=== PATIENT | male | born 1970 | race Caucasian/White ===

== ENCOUNTER 2018-09-09 14:28 | Emergency (ER) | payer OTHER ==
--- NOTE | 2018-09-09 16:45 | XRAY ---
Indication: Left-sided pain, swelling, and erythema. Recent diagnosis UTI. Two-dimensional testicular sonogram performed. Comparison: None No focal scrotal wall thickening or sonographic features for scrotal cellulitis/fasciitis. Both testicles homogeneous in echogenicity with normal color perfusion. Right testicle measures 4.2 x 3.0 x 2.7 cm and the left measures 3.8 x 3.1 x 2.4 cm. Right epididymis is sonographically unremarkable with tiny 4 mm cyst. Left epididymis appears prominent measuring 1.0 x 2.0 x 1.4 cm with hyperemic color Doppler flow favoring epididymitis. Small bilateral hydroceles. No suspicious extratesticular mass. Impression: 1. Left epididymitis with reactive hydrocele. 2. Tiny right epididymal cyst. 3. Remaining testicle sonogram is negative.
[2018-09-09 17:11] VITALS: BP 120/90; PULSE 64
[2018-09-09 17:15] VITALS: O2SAT 98
--- NOTE | 2018-09-09 17:16 | ERPHSYRPT ---
- History of Present Illness Source: patient Exam Limitations: no limitations Patient Subjective Stated Complaint: Left testicle swelling and pain Triage Nursing Assessment: Patient ambulated back to ED and transferred self to bed. Patient A+O X 3. Patient's skin pink, warm and dry. Patient was dx with UTI a few days ago and started on Cipro 500mg. Patient stated yesterday afternoon his left testicle started swelling and is painful when walking 7/10. Patient denies problems with voiding, but states he is voiding blood. Physician History: Pt is a 48 y/o male that was seen by Acute care yesterday, was diagnosed with UTI and was placed on Cipro. The pt took three doses of Cipro, and the testicle on the L got worse. He states, that the testicle is very swollen, very painful, and hard. Pt has rough time moving in position and is very uncomfortable. Timing/Duration: yesterday Activites at Onset: none Quality: pressure, sharpness, stabbing, throbbing Onset Location: left testicle Pain Radiation: none Severity of Pain-Max: severe Severity of Pain-Current: severe Modifying Factors: Improves With: analgesics, rest, position Associated Symptoms: denies symptoms Prior abdominal problems: none Allergies/Adverse Reactions: No Known Drug Allergies Allergy (Unverified 09/09/18 15:12) Home Medications: No Reportable Medications [No Reported Medications] 09/09/18 [History] Hx Influenza Vaccination/Date Given: No Hx Pneumococcal Vaccination/Date Given: No Immunizations Up to Date: Yes - Past Medical History Pertinent Past Medical History: No Neurological History: No Pertinent History ENT History: No Pertinent History Cardiac History: No Pertinent History Respiratory History: No Pertinent History Endocrine Medical History: No Pertinent History Musculoskeletal History: No Pertinent History GI Medical History: No Pertinent History History: No Pertinent History Psycho-Social History: No Pertinent History Male Reproductive Disorders: No Pertinent History - Past Surgical History Past Surgical History: No Neuro Surgical History: No Pertinent History Cardiac: No Pertinent History Respiratory: No Pertinent History Gastrointestinal: No Pertinent History Genitourinary: No Pertinent History Musculoskeletal: No Pertinent History Male Surgical History: No Pertinent History - Social History Smoking Status: Never smoker Exposure to second hand smoke: No Drug Use: none Patient Lives Alone: No - Review of Systems Constitutional: No Fever, No Chills Eyes: No Symptoms Ears, Nose, & Throat: No Symptoms Respiratory: No Cough, No Dyspnea Cardiac: No Chest Pain, No Edema, No Syncope Abdominal/Gastrointestinal: No Abdominal Pain, No Nausea, No Vomiting, No Diarrhea Genitourinary Symptoms: Dysuria, Hematuria, Testicle Pain (on the L) Musculoskeletal: No Back Pain, No Neck Pain Neurological: No Dizziness, No Focal Weakness, No Sensory Changes - Nursing Vital Signs Nursing Vital Signs: Initial Vital Signs Temperature 99.1 F 09/09/18 15:14 Pulse Rate 79 09/09/18 15:14 Respiratory Rate 18 09/09/18 15:14 Blood Pressure 114/82 09/09/18 15:14 O2 Sat by Pulse Oximetry 98 09/09/18 15:14 Pain Scale Pain Intensity 7 - Physical Exam General Appearance: moderate distress Eye Exam: PERRL/EOMI Ears, Nose, Throat Exam: pharynx normal, moist mucous membranes Neck Exam: normal inspection, supple Respiratory Exam: normal breath sounds, lungs clear Cardiovascular Exam: regular rate/rhythm, No edema Gastrointestinal/Abdomen Exam: soft, No tenderness Male Genital Exam: no hernia, epididymal tenderness, erythema (of the L testicle ), hydrocele, testicular tenderness (L), scrotal swellling Back Exam: normal inspection, No CVA tenderness Extremity Exam: normal inspection, normal range of motion, No pedal edema Neurologic Exam: alert, oriented x 3, cooperative, sensation nml, No motor deficits Skin Exam: normal color, warm, dry, No rash SpO2: 98 - Radiology Ultrasound Exam Scrotal Ultrasound: tele radiology report (L epididymitis with reactive hydrocyle) Ordered Tests: Active Orders 24 hr Category Date Time Status TESTICLE [US] Stat Exams 09/09/18 16:25 Completed - Progress Progress: unchanged Progress Note: 09/09/18 17:17 Pt was seen and examined. He is extremely tender, and did not respond to Cipro. I discussed the case with Dr Lubin and Dr Lutz [facility], and they accepted the pt. The pt asked to drive to hospital on his own. Report was given. Will see patient in: other (Pt to be transfered to [facility].) - Departure Departure Disposition: Home Clinical Impression: Acute epididymitis Condition: Stable Critical Care Time: No Referrals: ARIN VUONG [Primary Care Provider] - Additional Instructions: Pt to be transferred to [facility]. Dr Lubin and Dr Montanez accepting. Pt is driving himself to hospital.
== END 2018-09-09 17:15 | disposition short-term general hospital (02) ==
LOC: ED 14:28
DX: N45.1 Epididymitis (principal)
CPT/HCPCS: 76870; 99284; 99285